=== PATIENT | female | born 1960 | race Caucasian/White ===

== ENCOUNTER 2021-12-20 18:30 | Emergency (ER) | payer MEDICAID ==
[~2021-12-20] VITALS: Ht 152.4 cm; Wt 68.0 kg
[~2021-12-20 18:30] MED LIST: ESCI10TA PO; LORA10TA19 PO; LOSA50TA57 PO; METF500T PO; [UNRECOGNIZED DRUG - CODE] PO
[2021-12-20 19:26] VITALS: BP 169/88
--- NOTE | 2021-12-20 20:30 | NUR ---
SEEN AND EXAMINED BY ROBB
[2021-12-20] MEDS ORDERED: KETOROLAC 60 MG/2 ML VIAL IM ONE (21:35)
[2021-12-20] MEDS ORDERED: PRED20TA5 PO (21:44)
[2021-12-20] MEDS ORDERED: IBUP-2213 PO (21:44)
[2021-12-20] MEDS ORDERED: AZIT250T4 PO (21:44)
[2021-12-20 21:45] VITALS: BP 143/78
--- NOTE | 2021-12-20 21:45 | NUR ---
Patient discharged with v/s stable. Written and verbal after care instructions given and explained. Patient alert, oriented and verbalized understanding of instructions. Ambulatory with steady gait. All questions addressed prior to discharge. ID band removed. Patient advised to follow up with PMD. Rx of AZITHROMYCIN, IBUPROFEN, PREDNISONE, given. Patient educated on indication of medication including possible reaction and side effects. Opportunity to ask questions provided and answered.
== END 2021-12-20 21:45 | disposition home or self-care (01) ==
LOC: MED 18:30
DX: R05.9 Cough, unspecified (principal); J18.9 Pneumonia, unspecified organism; M79.10 Myalgia, unspecified site; J45.909 Unspecified asthma, uncomplicated; E11.9 Type 2 diabetes mellitus without complications; I10 Essential (primary) hypertension; Z79.84 Long term (current) use of oral hypoglycemic drugs; Z79.899 Other long term (current) drug therapy
CPT/HCPCS: 71045; 96372; 99283; J1885

== ENCOUNTER 2022-03-20 18:12 | Emergency (ER) | payer MEDICAID ==
[~2022-03-20] VITALS: Ht 152.4 cm; Wt 70.3 kg
[~2022-03-20 18:12] MED LIST changes: +AZIT250T4 PO; +IBUP-2213 PO; +PRED20TA5 PO
[2022-03-20 18:29] VITALS: BP 126/65
--- NOTE | 2022-03-20 18:35 | NUR ---
PT A&OX4, EQUAL CHEST RISE AND FALL. VITAL SIGNS STABLE. NO FACIAL DROPPING NOTED. NO ARM DRIFT NOTED. PT WITH DAUGHTER AND SENT TO LOBBY.
[2022-03-20] MEDS ORDERED: NACL 0.9% 1,000 ML IV ONE (20:00)
[2022-03-20 20:37] LABS: BASOPHILS % (AUTO) 0.8 % (0.0-2.0); EOSINOPHILS # (AUTO) 0.2 K/uL (0-0.4); EOSINOPHILS % (AUTO) 2.8 % (0.0-4.0); HEMATOCRIT 35.9 % (36-48); HEMOGLOBIN 11.9 g/dL (12.0-16.0); LYMPHOCYTES # (AUTO) 1.6 K/uL (2.5-16.5); LYMPHOCYTES % (AUTO) 27.4 % (20.5-51.1); MEAN CORPUSCULAR HEMOGLOBIN 29 pg (27-31); MEAN CORPUSCULAR HGB CONC 33 g/dL (33-37); MEAN CORPUSCULAR VOLUME 87.4 fL (80-94); MONOCYTES # (AUTO) 0.6 K/uL (0.8-1.0); MONOCYTES % (AUTO) 10.9 % (1.7-9.3); NEUTROPHILS # (AUTO) 3.4 K/uL (1.8-7.7); NEUTROPHILS % (AUTO) 58.1 % (42.2-75.2); PLATELET COUNT (AUTO) 241 K/uL (140-450); RED BLOOD CELL COUNT(AUTO) 4.11 MIL/uL (4.20-5.40); RED CELL DISTRIBUTION WIDTH 14.3 % (11.6-13.7); WHITE BLOOD COUNT (AUTO) 5.9 K/uL (4.8-10.8)
--- NOTE | 2022-03-20 20:40 | NUR ---
PATIENT PRESENTS TO ED WITH C/O DIZZINESS, NUMBNESS TO LEFT ARM AND BACK PAIN. PT STATES SHE HAD CHEST PAIN EARLIER TODAY BUT NO LONGER HAS SYMPTOMS. PT IS BLIND. DENIES N/V/D; SKIN IS PINK/WARM/DRY; AAOX4 WITH EVEN AND STEADY GAIT; HR EVEN AND REGULAR; PT DENIES ANY FEVER, CP, SOB, OR COUGH AT THIS TIME; PATIENT STATES PAIN OF 0/10 AT THIS TIME; VSS; PATIENT POSITIONED FOR COMFORT; HOB ELEVATED; BEDRAILS UP X2; BED DOWN. ER MD MADE AWARE OF PT STATUS. HX: DM2, HTN, HYPOTHYROID, BLINDNESS NKDA
[2022-03-20 21:17] LABS: ALBUMIN 2.7 g/dL (3.4-5.0); ANION GAP 13.2 (8-16); ASPARTATE AMINOTRANSFERASE 18 U/L (15-37); CHLORIDE 105 mmol/L (98-107); CREATININE 1.6 mg/dL (0.6-1.3); GFR ARICAN-AMERICAN 42 mL/min (>90); GLUCOSE 223 mg/dL (74-106); LIPASE 51 U/L (73-393); POTASSIUM 4.2 mmol/L (3.5-5.1); SODIUM SERUM 139 mmol/L (136-145); THYROID STIMULATING HORMONE 0.93 uIU/mL (0.34-3.74); TOTAL BILIRUBIN 0.2 mg/dL (0.0-1.0); UREA NITROGEN, BLOOD 39 mg/dL (7-18)
[2022-03-20] MEDS ORDERED: OSELTAMIVIR PHOSPHATE 75 MG CAP PO ONE (21:20)
[2022-03-20] MEDS ORDERED: TAM75 PO (21:54)
[2022-03-20 22:41] VITALS: BP 150/53
--- NOTE | 2022-03-20 22:43 | NUR ---
Patient discharged with v/s stable. Written and verbal after care instructions given and explained. Patient alert, oriented and verbalized understanding of instructions. Ambulatory with steady gait. All questions addressed prior to discharge. ID band removed. Patient advised to follow up with PMD. Rx of TAMIFLU given. Patient educated on indication of medication including possible reaction and side effects. Opportunity to ask questions provided and answered.
== END 2022-03-20 22:43 | disposition home or self-care (01) ==
LOC: MED 18:12
DX: J10.1 Influenza due to other identified influenza virus with other respiratory manifestations (principal); Z20.822 Contact with and (suspected) exposure to COVID-19; E11.9 Type 2 diabetes mellitus without complications; N17.9 Acute kidney failure, unspecified; D64.9 Anemia, unspecified; H54.7 Unspecified visual loss; I10 Essential (primary) hypertension; J45.909 Unspecified asthma, uncomplicated; Z87.448 Personal history of other diseases of urinary system; Z86.39 Personal history of other endocrine, nutritional and metabolic disease; E78.5 Hyperlipidemia, unspecified; F32.9 Major depressive disorder, single episode, unspecified; Z79.899 Other long term (current) drug therapy; Z79.1 Long term (current) use of non-steroidal anti-inflammatories (NSAID); Z79.2 Long term (current) use of antibiotics
CPT/HCPCS: 36415; 71045; 80053; 81002; 82948; 83690; 84443; 84484; 85025; 87426; 87804; 93005; 96360; 99285; J7030; Q0092

== ENCOUNTER 2022-12-27 14:02 | Emergency (ER) | payer MEDICAID, OTHER ==
[~2022-12-27] VITALS: Ht 154.9 cm; Wt 72.6 kg
[~2022-12-27 14:02] MED LIST changes: +LEVO0.1219 PO; +METF-346 PO; -METF500T PO; +TAM75 PO; -[UNRECOGNIZED DRUG - CODE] PO
[2022-12-27 14:06] VITALS: BP 112/71
--- NOTE | 2022-12-27 14:18 | NUR ---
PT W/C ASSISTED TO BED 12.
--- NOTE | 2022-12-27 14:20 | NUR ---
62/F WALKED IN C/O COUGH, GEN WEAK AND DIZZINESS ONSET 1 WK. AFEBRILE AT TRIAGE, AAO4, AMBULATORY, VITALS STABLE. PMH: DM, HLD, THYROID, BLINDS
--- NOTE | 2022-12-27 14:35 | NUR ---
BLOOD DRAWN BY BELT BUILDER HELPER
[2022-12-27] MEDS ORDERED: NACL 0.9% 1,000 ML IV ONE (14:40)
[2022-12-27] MEDS ORDERED: ACETAMINOPHEN EXTRA STRENGTH 500 MG TAB PO ONE (14:40)
[2022-12-27 15:07] LABS: ALBUMIN 3.1 g/dL (3.4-5.0); ANION GAP 14.6 (8-16); ASPARTATE AMINOTRANSFERASE 17 U/L (15-37); CARBON DIOXIDE 25.4 mmol/L (21-32); CHLORIDE 100 mmol/L (98-107); CREATININE 1.7 mg/dL (0.6-1.3); GFR ARICAN-AMERICAN 39 mL/min (>90); GLUCOSE 252 mg/dL (74-106); SODIUM SERUM 136 mmol/L (136-145); TOTAL BILIRUBIN 0.3 mg/dL (0.0-1.0); UREA NITROGEN, BLOOD 20 mg/dL (7-18)
[2022-12-27 15:09] LABS: BASOPHILS % (AUTO) 0.7 % (0.0-2.0); EOSINOPHILS # (AUTO) 0.1 K/uL (0-0.4); EOSINOPHILS % (AUTO) 1.6 % (0.0-4.0); HEMATOCRIT 36.4 % (36-48); LYMPHOCYTES # (AUTO) 0.7 K/uL (2.5-16.5); LYMPHOCYTES % (AUTO) 10.4 % (20.5-51.1); MEAN CORPUSCULAR HEMOGLOBIN 28 pg (27-31); MEAN CORPUSCULAR HGB CONC 33 g/dL (33-37); MEAN CORPUSCULAR VOLUME 85.7 fL (80-94); MONOCYTES # (AUTO) 0.5 K/uL (0.8-1.0); MONOCYTES % (AUTO) 7.2 % (1.7-9.3); NEUTROPHILS # (AUTO) 5.6 K/uL (1.8-7.7); NEUTROPHILS % (AUTO) 80.1 % (42.2-75.2); PLATELET COUNT (AUTO) 231 K/uL (140-450); RED BLOOD CELL COUNT(AUTO) 4.25 MIL/uL (4.20-5.40); RED CELL DISTRIBUTION WIDTH 13.4 % (11.6-13.7); WHITE BLOOD COUNT (AUTO) 6.9 K/uL (4.8-10.8)
--- NOTE | 2022-12-27 15:25 | NUR ---
PT UNABLE TO PROVIDE URINE AT THIS TIME. WILL ATTEMPT LATER
[2022-12-27 18:04] LABS: APPEARANCE,URINE SL CLOUDY (CLEAR); BILIRUBIN,URINE NEGATIVE (NEGATIVE); BLOOD, URINE TRACE-I (NEGATIVE); COLOR,URINE AMBER (YELLOW); LEUKOCYTE ESTERASE ,URINE NEGATIVE (NEGATIVE); NITRITE, URINE NEGATIVE (NEGATIVE); UGLUCOSE 1+ (NEGATIVE)
[2022-12-27 18:20] LABS: OTHER CASTS, URINE None Seen /LPF (None Seen); WBC,URINE 0-5 /HPF (0-5)
[2022-12-27] MEDS ORDERED: KETOROLAC 30 MG/ML VIAL IVP ONE (19:00)
[2022-12-27] MEDS ORDERED: ACET-10509 PO (19:04)
[2022-12-27 19:30] VITALS: BP 119/57
== END 2022-12-27 19:23 | disposition home or self-care (01) ==
LOC: MED 14:02 → EEVIPCON 14:02 → MED 19:23
DX: B34.9 Viral infection, unspecified (principal); Z20.822 Contact with and (suspected) exposure to COVID-19; N17.9 Acute kidney failure, unspecified; R51.9 Headache, unspecified; M79.10 Myalgia, unspecified site; R11.0 Nausea; J45.909 Unspecified asthma, uncomplicated; E11.9 Type 2 diabetes mellitus without complications; I10 Essential (primary) hypertension; E07.9 Disorder of thyroid, unspecified; Z79.84 Long term (current) use of oral hypoglycemic drugs; Z79.899 Other long term (current) drug therapy
CPT/HCPCS: 36415; 71045; 80053; 81001; 83690; 84484; 85025; 87086; 87426; 87804; 96361; 96374; 99284; J1885; J7030; Q0092

== ENCOUNTER 2024-06-27 01:16 | Inpatient (IN) | payer OTHER ==
[2024-06-27] VITALS (10 sets, daily range): BP systolic 58–147; BP diastolic 59–68; PULSE 45–80; RESP 14–20; TEMP 96.2–99.1; O2SAT 66–100
[~2024-06-27] VITALS: Ht 152.4 cm; Wt 65.8 kg
[~2024-06-27 01:16] MED LIST changes: +ACET-10509 PO; -LEVO0.1219 PO; +[UNRECOGNIZED DRUG - CODE] PO
[2024-06-27 02:00] LABS: BASOPHILS % (AUTO) 0.6 % (0.0-2.0); EOSINOPHILS # (AUTO) 0.2 K/uL (0-0.4); EOSINOPHILS % (AUTO) 2.6 % (0.0-4.0); HEMATOCRIT 30.7 % (36-48); HEMOGLOBIN 10.2 g/dL (12.0-16.0); LYMPHOCYTES # (AUTO) 1.1 K/uL (2.5-16.5); LYMPHOCYTES % (AUTO) 15.6 % (20.5-51.1); MEAN CORPUSCULAR HEMOGLOBIN 29 pg (27-31); MEAN CORPUSCULAR HGB CONC 33 g/dL (33-37); MEAN CORPUSCULAR VOLUME 88.7 fL (80-94); MONOCYTES # (AUTO) 0.8 K/uL (0.8-1.0); MONOCYTES % (AUTO) 11.6 % (1.7-9.3); NEUTROPHILS # (AUTO) 4.8 K/uL (1.8-7.7); NEUTROPHILS % (AUTO) 69.6 % (42.2-75.2); PLATELET COUNT (AUTO) 278 K/uL (140-450); RED BLOOD CELL COUNT(AUTO) 3.46 MIL/uL (4.20-5.40); RED CELL DISTRIBUTION WIDTH 15.8 % (11.6-13.7); WHITE BLOOD COUNT (AUTO) 6.9 K/uL (4.8-10.8)
[2024-06-27 02:14] LABS: ANION GAP 12.7 (8-16); CALCIUM 8.6 mg/dL (8.5-10.1); CARBON DIOXIDE 25.2 mmol/L (21-32); CREATININE 2.4 mg/dL (0.6-1.3); POTASSIUM 3.9 mmol/L (3.5-5.1)
[2024-06-27 02:20] LABS: ALBUMIN 2.8 g/dL (3.4-5.0); TOTAL BILIRUBIN 0.3 mg/dL (0.0-1.0); TOTAL PROTEIN, SERUM 6.5 g/dL (6.4-8.2)
[2024-06-27] MEDS: ASPIRIN 81 MG TAB.CHEW PO ONE (03:26)
[2024-06-27] MEDS ORDERED: ACETAMINOPHEN 325 MG TAB PO PRN (03:30)
[2024-06-27] MEDS ORDERED: POTASSIUM CHLORIDE 10 MEQ TABER PO PRN (03:30)
[2024-06-27] MEDS: FUROSEMIDE 20 MG/2 ML VIAL IVP ONE (05:15)
[2024-06-27] MEDS: ONDANSETRON 4 MG/2 ML VIAL IVP PRN (05:33)
[2024-06-27] MEDS ORDERED: FOLI1TAB90 PO (06:59)
[2024-06-27] MEDS ORDERED: LEVO0.083 PO (06:59)
[2024-06-27] MEDS ORDERED: EMPA10TA PO (06:59)
[2024-06-27] MEDS ORDERED: LIP80 PO (06:59)
[2024-06-27] MEDS ORDERED: ASPI-1749 PO (06:59)
[2024-06-27] MEDS: HYDROcodone/APAP 5/325 MG 1 TAB TAB PO PRN (08:49)
[2024-06-27] MEDS: FUROSEMIDE 20 MG/2 ML VIAL IVP SCH (08:55)
[2024-06-27] MEDS: MEDS-TO-BEDS MC SCH (20:10)
[2024-06-28] VITALS (11 sets, daily range): BP systolic 116–134; BP diastolic 57–89; PULSE 51–76; RESP 18–20; TEMP 97–99.1; O2SAT 96–100
[2024-06-28 06:10] LABS: BASOPHILS % (AUTO) 0.6 % (0.0-2.0); EOSINOPHILS # (AUTO) 0.2 K/uL (0-0.4); EOSINOPHILS % (AUTO) 2.3 % (0.0-4.0); HEMATOCRIT 28.1 % (36-48); HEMOGLOBIN 9.2 g/dL (12.0-16.0); LYMPHOCYTES # (AUTO) 0.9 K/uL (2.5-16.5); LYMPHOCYTES % (AUTO) 12.7 % (20.5-51.1); MEAN CORPUSCULAR HEMOGLOBIN 29 pg (27-31); MEAN CORPUSCULAR HGB CONC 33 g/dL (33-37); MEAN CORPUSCULAR VOLUME 87.3 fL (80-94); MONOCYTES # (AUTO) 0.6 K/uL (0.8-1.0); MONOCYTES % (AUTO) 8.1 % (1.7-9.3); NEUTROPHILS # (AUTO) 5.7 K/uL (1.8-7.7); NEUTROPHILS % (AUTO) 76.3 % (42.2-75.2); PLATELET COUNT (AUTO) 249 K/uL (140-450); RED BLOOD CELL COUNT(AUTO) 3.22 MIL/uL (4.20-5.40); RED CELL DISTRIBUTION WIDTH 16.1 % (11.6-13.7); WHITE BLOOD COUNT (AUTO) 7.5 K/uL (4.8-10.8)
[2024-06-28 07:12] LABS: ANION GAP 13.1 (8-16); CALCIUM 8.3 mg/dL (8.5-10.1); CARBON DIOXIDE 24.7 mmol/L (21-32); CREATININE 2.1 mg/dL (0.6-1.3); POTASSIUM 3.8 mmol/L (3.5-5.1)
[2024-06-28] MEDS: MORPHINE SULFATE 4 MG/ML SYR IVP PRN (09:37)
[2024-06-28] MEDS: FUROSEMIDE 20 MG/2 ML VIAL IVP SCH (09:39)
[2024-06-28 17:51] LABS: URINE TOTAL PROTEIN 6.8 mg/dL (0-12); URINE TPRO CREAT RATIO 0.4 (0-0.20)
[2024-06-28] MEDS: ATORVASTATIN 80 MG TAB PO SCH (21:02)
[2024-06-28] MEDS: ASPIRIN 81 MG TAB.CHEW PO SCH (21:02)
[2024-06-28 21:20] LABS: CREATININE,URINE RANDOM 18 mg/dL (30-125); URINE SODIUM, RANDOM 114 mmol/l (40-220)
[2024-06-28] MEDS: BLOOD GLUCOSE MONITORING 1 DEV DEV FS SCH (21:20)
[2024-06-28] MEDS: MEDS-TO-BEDS MC SCH (21:22)
[2024-06-28] MEDS ORDERED: DEXTROSE 50% 50 ML SYR IVP PRN (21:30)
[2024-06-28] MEDS: INSULIN LISPRO SLIDING SCALE 100 UNITS/ML VIAL SUBQ PRN (22:35)
[2024-06-28] MEDS: AZITHROMYCIN 500 MG in DEXTROSE 5% 250 ML IV SCH (23:40)
[2024-06-28] MEDS: AZITHROMYCIN 500 MG INJ VIAL IV ONE (23:40)
[2024-06-28] MEDS: cefTRIAXone 1,000 MG VIAL ONE (23:41)
[2024-06-29] VITALS (7 sets, daily range): BP systolic 119; BP diastolic 57–65; PULSE 71; RESP 18–20; TEMP 97–97.6; O2SAT 96–99
[2024-06-29 05:49] LABS: BASOPHILS % (AUTO) 0.5 % (0.0-2.0); EOSINOPHILS # (AUTO) 0.2 K/uL (0-0.4); EOSINOPHILS % (AUTO) 2.8 % (0.0-4.0); HEMATOCRIT 28.7 % (36-48); HEMOGLOBIN 9.6 g/dL (12.0-16.0); LYMPHOCYTES # (AUTO) 0.7 K/uL (2.5-16.5); LYMPHOCYTES % (AUTO) 10.4 % (20.5-51.1); MEAN CORPUSCULAR HEMOGLOBIN 29 pg (27-31); MEAN CORPUSCULAR HGB CONC 33 g/dL (33-37); MEAN CORPUSCULAR VOLUME 87.9 fL (80-94); MONOCYTES # (AUTO) 0.7 K/uL (0.8-1.0); MONOCYTES % (AUTO) 9.8 % (1.7-9.3); NEUTROPHILS # (AUTO) 5.1 K/uL (1.8-7.7); NEUTROPHILS % (AUTO) 76.5 % (42.2-75.2); PLATELET COUNT (AUTO) 236 K/uL (140-450); RED BLOOD CELL COUNT(AUTO) 3.26 MIL/uL (4.20-5.40); RED CELL DISTRIBUTION WIDTH 15.6 % (11.6-13.7); WHITE BLOOD COUNT (AUTO) 6.7 K/uL (4.8-10.8)
[2024-06-29 06:15] LABS: ANION GAP 12.8 (8-16); CALCIUM 8.4 mg/dL (8.5-10.1); CARBON DIOXIDE 27.9 mmol/L (21-32); CREATININE 2.1 mg/dL (0.6-1.3); POTASSIUM 3.7 mmol/L (3.5-5.1)
[2024-06-29] MEDS: LEVOTHYROXINE 0.088 MG TAB PO SCH (09:22)
[2024-06-29] MEDS: ESCITALOPRAM 20 MG TAB PO SCH (09:23)
[2024-06-29] MEDS: FOLIC ACID 1 MG TAB PO SCH (09:23)
[2024-06-29] MEDS: LOSARTAN 50 MG TAB PO SCH (09:23)
[2024-06-29] MEDS ORDERED: DOXY-22 PO (12:18)
[2024-06-29] MEDS ORDERED: CEFP200T20 PO (12:18)
== END 2024-06-29 14:45 | disposition home or self-care (01) | DRG 137 ==
LOC: MED 01:16 → MTU 03:34 → MMU 05:52
PROVIDERS: ADMIT Hospitalist; ATTEND Hospitalist
DX: J15.69 Pneumonia due to other Gram-negative bacteria (principal); E43 Unspecified severe protein-calorie malnutrition; I24.89 Other forms of acute ischemic heart disease; N17.9 Acute kidney failure, unspecified; I13.0 Hypertensive heart and chronic kidney disease with heart failure and stage 1 through stage 4 chronic kidney disease, or unspecified chronic kidney disease; I50.9 Heart failure, unspecified; I42.9 Cardiomyopathy, unspecified; J18.9 Pneumonia, unspecified organism; E11.22 Type 2 diabetes mellitus with diabetic chronic kidney disease; J45.909 Unspecified asthma, uncomplicated; Z20.822 Contact with and (suspected) exposure to COVID-19; N18.32 Chronic kidney disease, stage 3b; E78.5 Hyperlipidemia, unspecified; Z68.28 Body mass index [BMI] 28.0-28.9, adult
CPT/HCPCS: 36415; 71045; 76770; 78580; 80048; 80053; 82570; 82948; 83880; 84300; 84484; 85025; 87081; 93005; 96374; 96375; 99285; A9540; J0456; J0696; J1644; J1815; J1940; J2270; J2405; J7060; Q0092